=== PATIENT | male | born 1980 | race Caucasian/White ===

== ENCOUNTER 2024-05-11 07:50 | Emergency (ER) | payer OTHER, SELFPAY ==
[2024-05-11 08:01] VITALS: BP 117/68
--- NOTE | 2024-05-11 08:13 | ED.GENMED ---
History of Present Illness
General
Chief Complaint: Abdominal Symptoms
Source: patient
Time Seen by Provider: 05/11/24 08:04
History of Present Illness
History of Present Illness:
43-year-old male with no significant past medical history presenting to the emergency department for evaluation of left lower quadrant abdominal pain described to be more sharp and intense, 7 out of 10, radiating to the left lower quadrant/flank,
waxes and wanes in intensity with no other associated symptoms. Patient denies any fevers, nausea, vomiting, bowel changes, urinary symptoms. Denies any history of similar. Did not take anything for pain prior to arrival. Surgical history was
noted for previous cholecystectomy. 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
Past History
Past History
ED Past Medical History: None
ED Past Surgical History: Cholecystectomy
Social History
Tobacco: Vaping
Alcohol: None
Drug: Former user
Personal: Single
Living: alone
Review of Systems
Review of Systems
All Other Systems: ROS reviewed and negative except as documented in HPI and ROS
Phy Exam
Physical Exam
Physical Exam:
GENERAL: Alert , in no apparent distress
EYE: clear conjunctiva b/l
HEAD: NCAT
ENT: mmm.
CARDIAC: Regular rate and rhythm .
LUNGS: Clear breath sounds bilaterally, no acute respiratory distress, no wheezes/rales/rhonchi
ABDOMEN: Soft, mild tenderness left flank, no r/g, no tenderness at McBurney's point
NEUROLOGICAL: Alert and oriented
SKIN: Warm and dry, skin intact.
MUSCULOSKELETAL: well perfused.
PSYCH: Normal and appropriate interaction.
Scores
Heart Failure Risk
Heart Failure Risk Score: Not Applicable
Heart Score for Chest Pain Patients
STEMI patient?: Not applicable
Withdrawal Assessment of Alcohol
Withdrawal Assessment Completed?: Not applicable
Course
Orders/Labs/Results
Orders:
Orders
05/11/24 08:13
CT Abd/pelvis W Iv Cont Urgent
Comment:
Reason For Exam: LLQ/left flank pain
Ketorolac [Toradol] 30 mg IV NOW STA
05/11/24 08:41
Complete Blood Count/With Diff Urgent
Comprehensive Metabolic Panel Urgent
Lipase Urgent
05/11/24 08:42
Urinalysis Reflex To Culture Urgent
Date Specimen was Collected: 05/11/24
Time Specimen was Collected: 08:14
Urine Microscopic Reflex Cult Urgent
Abnormal Lab Results
05/11/24 05/11/24
08:41 08:42
Glucose 141 H mg/dl
(70-99)
ALT 61 H U/L
(0-50)
Ur Occult Blood Reflex 4+ A
(Negative)
Leukocyte Esterase Rfl Trace A
(Negative)
Urine RBC 40-50 A /HPF
(0-2)
Urine Bacteria (Reflex) Few A
(Negative)
05/11/24 08:41
05/11/24 08:41
Vital Signs
Initial and Last Documented VS:
Initial Vital Signs
Temp Pulse Resp BP Pulse Ox
98.9 F 60 16 117/68 98
05/11/24 08:01 05/11/24 08:01 05/11/24 08:01 05/11/24 08:01 05/11/24 08:01
Last Documented Vital Signs
Temp Pulse Resp BP Pulse Ox
98.9 F 64 18 112/74 98
05/11/24 08:01 05/11/24 09:42 05/11/24 09:42 05/11/24 09:42 05/11/24 09:42
MDM/Problems Addressed
Differential Diagnosis Includes:
renal/ureteral colic, diverticulitis, appendicitis, pancreatitis, muscular etiology
MDM/Problems Addressed:
43-year-old male presenting to the emergency department for evaluation of left lower quadrant/flank pain, began acutely this morning, no other associated symptoms. 7 out of 10 pain currently. Will treat pain with Toradol IV. Labs and CT imaging
ordered. Will order IV contrast given symptoms are located within the left lower quadrant as well and diverticulitis is on differential.
*Radiology
Radiology exam reviewed: radiology read reviewed
*Pulse Oximetry
Patient hypoxic: no
*Critical Care Note
Total Time (30-74mins, 75-104mins- exclusive of procedures): Not Applicable
Patient Management
Escalation/DeEscalation of care consider admission/obs:
Patient had a prearranged appointment with primary care provider today at 11:15 AM and had been waiting for this appointment for 3 months. Currently requesting to be discharged. I reviewed patient's CT scan and there does appear to be a 2 to 3 mm
stone at the distal left ureter. I explained to patient that the radiologist has not read the official report yet and there could be other findings however patient did feel comfortable being discharged home and I advised him I would contact him via
telephone once CT is read. Patient going straight from the ER to his primary care provider. Aware of return precautions to the ER.
Patient's scan did end up showing a 2.4 mm left distal ureteral stone. Patient was telephoned and advised of these findings. He will follow-up as discussed.
ED Attending Note
-
Portions of this chart may have been created with voice recognition software.� Occasional wrong word or��sound alike� substitutions may have occurred due to the inherent limitations of voice recognition software.
Discharge Plan
Departure
Patient Disposition: Home (Routine Discharge)
Date of Disposition: 05/11/24
Time of Disposition: 10:41
Patient with high blood pressure during this ER visit?: No
Discharge Problem:
Ureterolithiasis
Instructions: Kidney Stone, Adult ED
Prescriptions:
New
tamsulosin [Flomax] 0.4 mg capsule
0.4 mg PO DAILY Qty: 10 0RF
naproxen 500 mg tablet
500 mg PO BID PRN (Reason: Pain) Qty: 20 0RF
ondansetron 4 mg tablet,disintegrating
4 mg PO TIDPRN PRN (Reason: nausea/vomiting) Qty: 10 0RF
No Action
ondansetron 4 MG tablet,disintegrating
4 mg PO Q8HPRN PRN (Reason: nausea/Vomiting) Qty: 15 0RF
Referrals:
Bonilla Crespo Jr., MD [Active] -
Boni Manrique MD [Family Provider] -
Interventions
Interventions:
*Risk Screen - Suicide Last Done: 05/11/24 08:03
*General Assessment Last Done: 05/11/24 08:16
*Neglect/Abuse Screening Last Done: 05/11/24 08:03
*ED COVID-19 Vaccine History Last Done: 05/11/24 08:16
*Nursing Disposition Last Done: 05/11/24 10:52
LB-Gspiem-Tblwifdhgy Assessment Last Done: 05/11/24 08:15
Discharge Date and Time
Discharge Date/Time: 05/11/24 10:52
Print Language: LAO
[2024-05-11 08:38] VITALS: BMI 30.4
[2024-05-11] MEDS: TORADOL 30 MG IV (08:39)
[2024-05-11 08:51] LABS: % Basophils 1.3 % (0-2); % Eosinophils 3.2 % (0-6); % Immature Granulocytes 0.3 % (0-0.5); % Lymphocytes 22.2 % (20.5-51.1); % Monocytes 7.1 % (1.7-9.3); % Neutrophils 65.9 % (42.2-75.2); Absolute Basophils 0.1 10^3/uL (0-0.2); Absolute Eosinophils 0.2 10^3/uL (0-0.7); Absolute Lymphocytes 1.5 10^3/uL (1.2-3.4); Absolute Monocytes 0.5 10^3/uL (0.1-0.6); Absolute Neutrophils 4.5 10^3/uL (1.4-6.5); Hematocrit 43.1 % (39.0-52.0); Hemoglobin 15.2 g/dL (13.0-18.0); Mean Corp Hgb Conc. 35.3 g/dL (33.0-37.0); Mean Platelet Volume 9.3 fL (7.4-10.4); Nucleated Red Blood Cells % 0 % (-); Platelet Count 292 10^3/uL (130-400); Red Blood Cell Count 5.07 10^6/uL (4.70-6.10); Red Cell Dist. Width 12.9 % (11.5-14.5); White Blood Cell Count 6.9 10^3/uL (4.8-10.8)
[2024-05-11 08:52] LABS: Urine Albumin Trace (Neg - Trace); Urine Bilirubin Negative (Negative); Urine Character Clear (Clear); Urine Color Yellow; Urine Glucose Negative (Negative); Urine Ketone Negative (Negative); Urine Leukocyte Trace (Negative); Urine Nitrite Negative (Negative); Urine Occult Blood 4+ (Negative); Urine Specific Gravity 1.025 (<1.030); Urine Urobilinogen Negative (Neg - 1+)
[2024-05-11 09:04] LABS: ALT (SGPT) 61 U/L (0-50); AST (SGOT) 32 U/L (17-59); Albumin 4.8 g/dl (3.5-5.0); Alkaline Phosphatase 88 U/L (38-126); Blood Urea Nitrogen 15 mg/dl (9-20); Carbon Dioxide 24 mmol/L (22-30); Chloride 106 mmol/L (98-107); Estimated Creatinine Clearance 103 ml/min; Glucose 141 mg/dl (70-99); Lipase 58 U/L (23-300); Potassium 3.9 mmol/L (3.5-5.1); Sodium 143 mmol/L (135-145); Total Bilirubin 0.7 mg/dl (0.2-1.3); Total Protein 7.4 g/dl (6.3-8.2); eGFR > 60.00
[2024-05-11 09:22] LABS: Urine Mucus Moderate; Urine Squamous Cell 0-2 /LPF (Few)
[2024-05-11 09:24] LABS: Urine Bacteria Few (Negative); Urine Red Blood Cell 40-50 /HPF (0-2)
[2024-05-11 09:42] VITALS: BP 112/74
== END 2024-05-11 10:52 | disposition home or self-care (01) ==
LOC: EMR 07:50
PROVIDERS: Physician Assistant Medical; EMERGENCY PHYSICIAN Emergency Medicine; FAMILY PHYSICIAN Internal Medicine
DX: N20.1 Calculus of ureter (principal); F17.290 Nicotine dependence, other tobacco product, uncomplicated; Z90.49 Acquired absence of other specified parts of digestive tract
CPT/HCPCS: 99284; 74177; 80053; 81003; 81015; 83690; 85025; Q9967

== ENCOUNTER 2025-06-27 19:39 | Emergency (ER) | payer OTHER, SELFPAY ==
[2025-06-27 19:40] VITALS: BP 174/70
[2025-06-27 20:33] VITALS: BMI 27.3
--- NOTE | 2025-06-27 21:01 | ED.GENMED ---
History of Present Illness
General
Chief Complaint: Bowel Problem
Source: patient
Exam Limitations: none
Time Seen by Provider: 06/27/25 20:44
History of Present Illness
History of Present Illness:
44yoM with a history of hyperlipidemia presenting with his significant other for evaluation of rectal bleeding. Patient had 2 episodes of bright red blood per rectum this evening. The blood was in the toilet for the first episode and was only on
the toilet paper the second episode. He did not pass any stool during these episodes. Last episode was about 2 hours ago. He is otherwise feeling well and denies any abdominal pain, fevers, chills, nausea, vomiting, dizziness, syncope. He does
not take any blood thinners. He has never had a colonoscopy before.
Past History
Past History
ED Past Medical History: None
ED Past Surgical History: Cholecystectomy
Social History
Tobacco: Vaping
Alcohol: None
Drug: Former user
Personal: Single
Living: alone
Phy Exam
General Physical Exam
General Presentation: well appearing and no apparent distress
General Skin: warm and dry
General Habitus: normal
General Mental: alert
ENT Exam
ENT Exam: normocephalic
Pulmonary Exam
Pulmonary Exam: no respiratory distress
Gastrointestinal Exam
Gastrointestinal Exam: non tender, soft and non distended
Rectal Exam: other (No visualized external hemorrhoids. No bleeding on digital rectal exam. )
Neurological Exam
Neurological Exam: alert
[place] Coma Scale
Eye Opening: Spontaneous
Verbal Response: Oriented
Motor Response: Obeys Commands
GCS Total Score: 15
Skin Exam
Skin Exam: normal color and warm/dry
Psychiatric Exam
Psychiatric Exam: normal mood/affect
Course
Orders/Labs/Results
Orders:
Orders
06/27/25 21:07
CMP [Comprehensive Metabolic Panel] Urgent
06/27/25 21:08
Complete Blood Count/With Diff Urgent
Abnormal Lab Results
06/27/25 06/27/25
21: 21:08
Absolute Monos (auto) 0.8 H 10^3/uL
(0.1-0.6)
Calcium 10.3 H mg/dl
(8.4-10.2)
ALT 53 H U/L
(0-50)
Total Protein 8.3 H g/dl
(6.3-8.2)
Albumin 5.1 H g/dl
(3.5-5.0)
06/27/25 21:08
06/27/25 21:07
Vital Signs
Initial and Last Documented VS:
Initial Vital Signs
Temp Pulse Resp BP Pulse Ox
98.2 F 62 18 174/70 100
06/27/25 19:40 06/27/25 19:40 06/27/25 19:40 06/27/25 19:40 06/27/25 19:40
Last Documented Vital Signs
Temp Pulse Resp BP Pulse Ox
98.2 F 59 20 134/74 98
06/27/25 19:40 06/27/25 22:22 06/27/25 22:22 06/27/25 22:22 06/27/25 22:22
MDM/Problems Addressed
Differential Diagnosis Includes:
44yoM here after 2 episodes of BRBPR this evening. Otherwise asymptomatic. No abd pain or dizziness. No blood thinners. Patient hypertensive in triage with otherwise stable vitals. He is well appearing in on distress. No blood noted on SOLOMON.
Differential diagnosis includes: hemorrhoidal bleeding, diverticular bleeding, AVM, malignancy, acute blood loss anemia
Initial ED plan: Check CBC and CMP.
*Pulse Oximetry
SaO2: 100
Oxygen Mode of Delivery: Room air
Patient hypoxic: no
*Critical Care Note
Total Time (30-74mins, 75-104mins- exclusive of procedures): Not Applicable
Update Note
Update Note:
Labs overall unremarkable and hemoglobin is 16.6. Vitals stable on reassessment. No episodes of rectal bleeding throughout ED stay. No indication for hospitalization. He was advised to f/u with PCP and GI. Strict ED return precautions reviewed.
Patient and in agreement with plan and he was discharged in stable condition.
ED Attending Note
-
Portions of this chart may have been created with voice recognition software.� Occasional wrong word or��sound alike� substitutions may have occurred due to the inherent limitations of voice recognition software.
Discharge Plan
Departure
Patient Disposition: Home (Routine Discharge)
Date of Disposition: 06/27/25
Time of Disposition: 22:24
Patient with high blood pressure during this ER visit?: No
Discharge Problem:
Rectal bleeding
Instructions: Bloody stools in adults - ED (DC)
Prescriptions:
No Action
ondansetron 4 MG tablet,disintegrating
4 mg PO Q8HPRN PRN (Reason: nausea/Vomiting) Qty: 15 0RF
tamsulosin [Flomax] 0.4 mg capsule
0.4 mg PO DAILY Qty: 10 0RF
naproxen 500 mg tablet
500 mg PO BID PRN (Reason: Pain) Qty: 20 0RF
ondansetron 4 mg tablet,disintegrating
4 mg PO TIDPRN PRN (Reason: nausea/vomiting) Qty: 10 0RF
Referrals:
Lala Tamayo MD [Active, Gastroenterology]
Boni Manrique MD [Family Provider, Internal Medicine]
Activity Restrictions/Additional Instructions:
Please call tomorrow to schedule a follow-up appointment with your family doctor and gastroenterology. Return to the ER with any new or worsening symptoms including heavy bleeding, dizziness, or passing out.
Interventions
Interventions:
*Risk Screen - Suicide Last Done: 06/27/25 19:40
*General Assessment Last Done: 06/27/25 20:33
*Neglect/Abuse Screening Last Done: 06/27/25 19:40
*ED COVID-19 Vaccine History Last Done: 06/27/25 21:19
*ED Influenza Vaccine History Last Done: 06/27/25 21:19
[facility] Fall Risk Assessment Tool Last Done: 06/27/25 21:19
*Nursing Disposition Last Done: 06/27/25 22:45
RX-Qcasch-Ewkntrfgxx Assessment Last Done: 06/27/25 21:19
Discharge Date and Time
Discharge Date/Time: 06/27/25 22:50
Print Language: NEPALI
[2025-06-27 21:15] LABS: Hematocrit 49.4 % (39.0-52.0); Hemoglobin 16.6 g/dL (13.0-18.0); Mean Corp Hgb Conc. 33.6 g/dL (33.0-37.0); Mean Corpuscular Volume 85.8 fL (80.0-94.0); Nucleated Red Blood Cells % 0 % (-); Platelet Count 318 10^3/uL (130-400); Red Cell Dist. Width 12.6 % (11.5-14.5)
[2025-06-27 21:45] LABS: ALT (SGPT) 53 U/L (0-50); AST (SGOT) 28 U/L (17-59); Albumin 5.1 g/dl (3.5-5.0); Alkaline Phosphatase 90 U/L (38-126); Blood Urea Nitrogen 17 mg/dl (9-20); Calcium 10.3 mg/dl (8.4-10.2); Carbon Dioxide 27 mmol/L (22-30); Chloride 106 mmol/L (98-107); Estimated Creatinine Clearance 99 ml/min; Glucose 88 mg/dl (70-99); Potassium 4.2 mmol/L (3.5-5.1); Sodium 141 mmol/L (135-145); Total Protein 8.3 g/dl (6.3-8.2); eGFR > 60.00
[2025-06-27 22:22] VITALS: BP 134/74
== END 2025-06-27 22:50 | disposition home or self-care (01) ==
LOC: EMR 19:39
PROVIDERS: EMERGENCY PHYSICIAN Student in an Organized Health Care Education/Training Program; FAMILY PHYSICIAN Internal Medicine
DX: K62.5 Hemorrhage of anus and rectum (principal); E78.00 Pure hypercholesterolemia, unspecified; F17.290 Nicotine dependence, other tobacco product, uncomplicated; Z90.49 Acquired absence of other specified parts of digestive tract
CPT/HCPCS: 99283; 80053; 85025